=== PATIENT | male | born 1990 | race Hispanic/Latino ===

== ENCOUNTER 2019-10-27 01:56 | Emergency (ER) | payer OTHER ==
--- OUTSIDE RECORDS SUMMARY | 2019-10-27 01:57 | XMS REPORT | Continuity of Care Document ---
:1990 Author Organization [facility] t Address [address] [place] [address] Care Team Providers Name Role Phone TechAaliyah Cardio Fac Attending Clinician Unavailable Problems This patient has no known problems. Allergies, Adverse Reactions, Alerts This patient has no known allergies or adverse reactions. Medications This patient has no known medications. Procedures This patient has no known procedures. Encounters Start End Encounter Admission Attending Care Care Encounter Source Date/Time Date/Time Type Type Clinicians Facility Department ID 2019-01-18 2019-01-18 Animal Keeper Head, [facility] [id number] 10:58:24 11:50:19 Only Cardio Fac Glory [id number] Mathew [id number] Calvin [id number] nal 059 Building Results This patient has no known results.
[2019-10-27 03:26] LABS: Absolute Lymphocytes (CBC) 2.9 K/uL (0.7-4.9); Basophils % 0.9 % (0-1.3); Hematocrit 48.6 % (39.6-49.0); Lymphocytes % 40.8 % (15.3-44.8); MPV 8.6 fL (7.6-11.3); RBC Red Blood Cell Count 5.32 M/uL (4.33-5.43)
[2019-10-27 03:29] LABS: Protime INR 0.98
[2019-10-27 03:39] LABS: ALT/SGPT 99 U/L (12-78); AST/SGOT 39 U/L (15-37); Albumin 4.1 g/dL (3.4-5.0); Alkaline Phosphatase 74 U/L (45-117); BUN Blood Urea Nitrogen 13 mg/dL (7-18); Bicarbonate 24 mmol/L (21-32); Bilirubin Direct 0.1 mg/dL (0-0.2); Bilirubin Total 0.4 mg/dL (0.2-1.0); CKMB Creatine Kinase MB < 1.0 ng/mL (0.3-3.6); Creatine Phosphokinase 57 U/L (39-308); Glucose Level 96 mg/dL (74-106); Lipase 104 U/L (73-393); Magnesium 2.1 mg/dL (1.8-2.4); NT PRO-BNP 7 pg/mL (<125); Protein, Total 8.2 g/dL (6.4-8.2); Sodium Level 139 mmol/L (136-145); Troponin (Emerg Dept Use Only) < 0.02 ng/mL (0.0-0.045)
--- NOTE | 2019-10-27 04:26 | EDPHYS ---
Physician Documentation [facility] Name: Diaz Schroeder Age: 29 yrs Sex: Male : 1990 Arrival Date: 10/27/2019 Time: 01:57 Bed 13 Private MD: ED Physician Luigi Murphy HPI: 10/26 03:36 This 29 yrs old Male presents to ER via Ambulatory with complaints of Panic mh7 Attack. 03:36 The patient has shortness of breath at rest, during emotionally upset. Onset: The mh7 symptoms/episode began/occurred yesterday. Duration: The symptoms are intermittent, with no pattern. The patient's shortness of breath is aggravated by nothing, is alleviated by nothing. 03:37 Associated signs and symptoms: Pertinent positives: productive cough, Pertinent mh7 negatives: chest pain, diaphoresis, dizziness, fever, hemoptysis, loss of consciousness, nausea, numbness in extremities, visual changes, vomiting. Severity of symptoms: At their worst the symptoms were moderate yesterday, in the emergency department the symptoms have improved moderately. The patient has experienced similar episodes in the past, several times. Historical: - Allergies: 02:13 No Known Allergies; rr5 - Home Meds: 02:13 BP medication " little pink pill" [Active]; anxiety medication daily [Active]; rr5 - PMHx: 02:13 Hypertension; Anxiety; rr5 - PSHx: 02:13 None; rr5 - Immunization history:: Adult Immunizations up to date. - Social history:: Smoking status: Patient denies any tobacco usage or history of. ROS: 03:37 Constitutional: Negative for fever, chills, and weight loss, Eyes: Negative for injury, mh7 pain, redness, and discharge, ENT: Negative for injury, pain, and discharge, Neck: Negative for injury, pain, and swelling, Cardiovascular: Negative for chest pain, palpitations, and edema, Abdomen/GI: Negative for abdominal pain, nausea, vomiting, diarrhea, and constipation, Back: Negative for injury and pain, : Negative for injury, bleeding, discharge, and swelling, MS/Extremity: Negative for injury and deformity, Skin: Negative for injury, rash, and discoloration, Neuro: Negative for headache, weakness, numbness, tingling, and seizure, Psych: Negative for depression, anxiety, suicide ideation, homicidal ideation, and hallucinations, Allergy/Immunology: Negative for hives, rash, and allergies, Endocrine: Negative for neck swelling, polydipsia, polyuria, polyphagia, and marked weight changes, Hematologic/Lymphatic: Negative for swollen nodes, abnormal bleeding, and unusual bruising. Exam: 03:37 Constitutional: This is a well developed, well nourished patient who is awake, alert, mh7 and in no acute distress. Head/Face: Normocephalic, atraumatic. Eyes: Pupils equal round and reactive to light, extra-ocular motions intact. Lids and lashes normal. Conjunctiva and sclera are non-icteric and not injected. Cornea within normal limits. Periorbital areas with no swelling, redness, or edema. Neck: Trachea midline, no thyromegaly or masses palpated, and no cervical lymphadenopathy. Supple, full range of motion without nuchal rigidity, or vertebral point tenderness. No Meningismus. Chest/axilla: Normal chest wall appearance and motion. Nontender with no deformity. No lesions are appreciated. Cardiovascular: Regular rate and rhythm with a normal S1 and S2. No gallops, murmurs, or rubs. Normal PMI, no JVD. No pulse deficits. Respiratory: Lungs have equal breath sounds bilaterally, clear to auscultation and percussion. No rales, rhonchi or wheezes noted. No increased work of breathing, no retractions or nasal flaring. Abdomen/GI: Soft, non-tender, with normal bowel sounds. No distension or tympany. No guarding or rebound. No evidence of tenderness throughout. Back: No spinal tenderness. No costovertebral tenderness. Full range of motion. Skin: Warm, dry with normal turgor. Normal color with no rashes, no lesions, and no evidence of cellulitis. MS/ Extremity: Pulses equal, no cyanosis. Neurovascular intact. Full, normal range of motion. Neuro: Awake and alert, GCS 15, oriented to person, place, time, and situation. Cranial nerves II-XII grossly intact. Motor strength 5/5 in all extremities. Sensory grossly intact. Cerebellar exam normal. Normal gait. Psych: Awake, alert, with orientation to person, place and time. Behavior, mood, and affect are within normal limits. Vital Signs: 02:13 BP 156 / 96; Pulse 78; Resp 20; Temp 97.2; Pulse Ox 100% on R/A; sg 03:10 BP 139 / 94; Pulse 69; Resp 18; Pulse Ox 98% on R/A; ao 04:14 BP 141 / 97; Pulse 69; Resp 16; Pulse Ox 99% ; Pain 0/10; ao MDM: 02:45 Patient medically screened. [facility] 04:21 Differential diagnosis: Anemia Anxiety Reaction asthma, Bronchitis Myocardial 7 Infarction pneumonia, Psychogenic pulmonary edema, Pulmonary Embolism reactive airway disease. Data reviewed: vital signs, nurses notes, lab test result(s), cardiac enzymes, CBC, electrolytes, EKG, radiologic studies, plain films. Data interpreted: groundwater monitoring technician: rate is 69 beats/min, rhythm is normal sinus rhythm, regular, Interpretation: normal rate, normal rhythm, Pulse oximetry: on room air is 99 %. Interpretation: normal. Counseling: I had a detailed discussion with the patient and/or guardian regarding: the historical points, exam findings, and any diagnostic results supporting the discharge/admit diagnosis, the presence of at least one elevated blood pressure reading (>120/80) during this emergency department visit, lab results, radiology results, the need for outpatient follow up, to return to the emergency department if symptoms worsen or persist or if there are any questions or concerns that arise at home. Response to treatment: the patient's symptoms have resolved after treatment, the patient's blood pressure is in an acceptable range, mental status has returned to baseline, the patient no longer shows bradycardia, the patient is not short of breath, the patient is not tachycardic, the patient's pain is gone, the patient's temperature has normalized. 10/26 02:46 Order name: Blood Culture Adult (2) 10/26 02:46 Order name: BMP; Complete Time: 04:16 10/26 02:46 Order name: CBC with Diff; Complete Time: 04:16 10/26 02:46 Order name: Ckmb; Complete Time: 04:16 10/26 02:46 Order name: CPK; Complete Time: 04:16 10/26 02:46 Order name: D-Dimer; Complete Time: 04:16 10/26 02:46 Order name: Hepatic Function; Complete Time: 04:16 10/26 02:46 Order name: Lipase; Complete Time: 04:16 [facility] 10/26 02:46 Order name: Magnesium; Complete Time: 04:16 10/26 02:46 Order name: NT PRO-BNP; Complete Time: 04:16 10/26 02:46 Order name: PT-INR; Complete Time: 04:16 [facility] 10/26 02:46 Order name: Ptt, Activated; Complete Time: 04:16 [facility] 10/26 02:46 Order name: Troponin (emerg Dept Use Only); Complete Time: 04:16 [facility] 10/26 02:46 Order name: EKG; Complete Time: 02:48 [facility] 10/26 02:46 Order name: Cardiac monitoring; Complete Time: 04:07 [facility] 10/26 02:48 Order name: Chest Pa And Lat (2 Views) XRAY [facility] 10/26 02:48 Order name: EKG Electrocardiogram [facility] 10/26 02:46 Order name: EKG - Nurse/Tech; Complete Time: 04:07 [facility] 10/26 02:46 Order name: IV Saline Lock; Complete Time: 04:07 [facility] 10/26 02:46 Order name: Labs collected and sent; Complete Time: 04:07 [facility] 10/26 02:46 Order name: O2 Per Protocol; Complete Time: 04:07 [facility] 10/26 02:46 Order name: O2 Sat Monitoring; Complete Time: 04:07 [facility] Administered Medications: No medications were administered Disposition: 10/27/19 04:25 Discharged to Home. Impression: Dyspnea, Anxiety. - Condition is Stable. - Discharge Instructions: Shortness of Breath, [id number], Generalized Anxiety Disorder. - Medication Reconciliation Form, Thank You Letter, Antibiotic Education, Prescription Opioid Use form. - Follow up: Private Physician; When: 1 - 2 days; Reason: Worsening of condition, Recheck today's complaints, Re-evaluation by your physician. - Problem is an acute exacerbation. - Symptoms have improved. Signatures: Dispatcher [employer] EDMS Anthony Choi RN Carlos Lora RN RN rr5 Luigi Murphy MD MD 7 Corrections: (The following items were deleted from the chart) 02:49 02:48 Basic Metabolic Panel ordered. [facility] 02:49 02:48 CBC with Automated Diff ordered. [facility] 02:49 02:48 CKMB Creatine Kinase MB ordered. [facility] 02:49 02:48 Creatine Phosphokinase ordered. [facility] 02:49 02:48 D-Dimer ordered. [facility] 02:49 02:48 Liver (Hepatic) Function ordered. [facility] 02:49 02:48 Lipase ordered. [facility] 02:49 02:48 Magnesium ordered. [facility] 02:49 02:48 NT PRO-BNP ordered. [facility] 02:49 02:48 Protime (+INR) ordered. [facility] 02:49 02:48 PTT, Activated Partial Thromb ordered. [facility] 02:49 02:48 Troponin (Emerg Dept Use Only) ordered. [facility] 04:09 02:48 Blood Culture ordered. [facility] 04:50 04:25 10/27/2019 04:25 Discharged to Home. Impression: Dyspnea; Anxiety. Condition is ao Stable. Forms are Medication Reconciliation Form, Thank You Letter, Antibiotic Education, Prescription Opioid Use. Follow up: Private Physician; When: 1 - 2 days; Reason: Worsening of condition, Recheck today's complaints, Re-evaluation by your physician. Problem is an acute exacerbation. Symptoms have improved. mh7
--- NOTE | 2019-10-27 04:26 | ER ---
Nurse's Notes [facility] Name: Diaz Schroeder Age: 29 yrs Sex: Male : 1990 Arrival Date: 10/27/2019 Time: 01:57 Bed 13 Private MD: Diagnosis: Dyspnea;Anxiety Presentation: 10/26 02:09 Chief complaint: Patient states: feeling short of breath this morning, reports waking rr5 up from sleep feeling anxious and short of breath, states has had a COVID 19 test performed with negative results, states his partner whom he shares a house with tested positive, denies N/V/D at this time. Coronavirus screen: Proceed with normal triage. Ebola Screen: Patient negative for fever greater than or equal to 101.5 degrees Fahrenheit, and additional compatible Ebola Virus Disease symptoms Patient denies exposure to infectious person. Patient denies travel to an Ebola-affected area in the 21 days before illness onset. No symptoms or risks identified at this time. Initial Sepsis Screen: Does the patient meet any 2 criteria? No. Patient's initial sepsis screen is negative. Does the patient have a suspected source of infection? No. Patient's initial sepsis screen is negative. Risk Assessment: Do you want to hurt yourself or someone else? Patient reports no desire to harm self or others. Onset of symptoms was October 27, 2019. Care prior to arrival: None. Transition of care: patient was not received from another setting of care. 02:09 Method Of Arrival: Ambulatory rr5 02:09 Acuity: MALOU 4 rr5 Historical: - Allergies: 02:13 No Known Allergies; rr5 - Home Meds: 02:13 BP medication " little pink pill" [Active]; anxiety medication daily [Active]; rr5 - PMHx: 02:13 Hypertension; Anxiety; rr5 - PSHx: 02:13 None; rr5 - Immunization history:: Adult Immunizations up to date. - Social history:: Smoking status: Patient denies any tobacco usage or history of. Screenin:20 Abuse screen: Denies threats or abuse. Denies injuries from another. Nutritional ao screening: No deficits noted. Tuberculosis screening: No symptoms or risk factors identified. Fall Risk None identified. Assessment: 02:15 General: Appears in no apparent distress. comfortable, obese, well groomed, well ao developed, well nourished, Behavior is calm, cooperative, appropriate for age. Pain: Denies pain. Neuro: Level of Consciousness is awake, alert, obeys commands, Oriented to person, place, time, situation, Appropriate for age Moves all extremities. Full function Speech is normal. Neuro: Reports anxiety attack. Cardiovascular: Capillary refill < 3 seconds Patient's skin is warm and dry. Respiratory: Airway is patent Respiratory effort is even, unlabored, Respiratory pattern is regular, symmetrical. GI: Abdomen is obese. : No signs and/or symptoms were reported regarding the genitourinary system. EENT: No signs and/or symptoms were reported regarding the EENT system. Derm: Skin is intact, Skin is pink, warm \\T\\ dry. normal, Skin temperature is warm. Musculoskeletal: Circulation, motion, and sensation intact. Range of motion: intact in all extremities. 03:10 Reassessment: Patient appears in no apparent distress at this time. Patient and/or ao family updated on plan of care and expected duration. Pain level reassessed. Patient in no distress. 04:14 Reassessment: Patient appears in no apparent distress at this time. Patient and/or ao family updated on plan of care and expected duration. Pain level reassessed. Waiting on Labs. 04:49 Reassessment: Patient appears in no apparent distress at this time. Patient discharge ao home ambulatory. Pt agree with the POC and to follow with PCP. Pt had no questions. Vital Signs: 02:13 BP 156 / 96; Pulse 78; Resp 20; Temp 97.2; Pulse Ox 100% on R/A; sg 03:10 BP 139 / 94; Pulse 69; Resp 18; Pulse Ox 98% on R/A; ao 04:14 BP 141 / 97; Pulse 69; Resp 16; Pulse Ox 99% ; Pain 0/10; ao ED Course: 01:57 Patient arrived in ED. ds1 02:00 Patient has correct armband on for positive identification. shelter monitor on. Pulse ao ox on. NIBP on. 02:09 Arm band placed on. rr5 02:12 Triage completed. rr5 02:24 Luigi Murphy MD is Attending Physician. mh7 03:10 Inserted saline lock: 20 gauge in right antecubital area, using aseptic technique. ao Blood collected. 03:26 Choi, Anthony, RN is Primary Nurse. ao 03:28 Chest Pa And Lat (2 Views) XRAY In Process Unspecified. EDMS 04:48 No provider procedures requiring assistance completed. IV discontinued, intact, ao bleeding controlled, No redness/swelling at site. Pressure dressing applied. Administered Medications: No medications were administered Outcome: 04:25 Discharge ordered by MD. holliday 04:48 Discharged to home ambulatory. ao 04:48 Condition: stable 04:48 Discharge instructions given to patient, Instructed on discharge instructions, follow up and referral plans. Demonstrated understanding of instructions, follow-up care, medications. 04:50 Patient left the ED. ao Signatures: Dispatcher [employer] EDMS Daren Medeiros RN RN Jordyn Leo ds1 Anthony Choi RN RN Carlos Gonzalez RN RN rr5 Luigi Murphy MD MD [facility]
[2019-10-27 05:20] VITALS: TEMP 97.2
[2019-10-27 05:23] VITALS: BP 141/97; O2SAT 99
--- NOTE | 2019-10-27 11:08 | RAD REPORT ---
EXAM DESCRIPTION: RAD - Chest Pa And Lat (2 Views) - 10/27/2019 3:28 am CLINICAL HISTORY: SOB Chest pain. COMPARISON: No comparisons FINDINGS: The lungs are clear. The heart is normal in size. No displaced fractures. IMPRESSION: No acute or concerning finding suspected.
--- NOTE | 2019-10-27 11:24 | EKG ---
Test Date: 2019-10-27 Test Time: 03:47:37 Shade Bander: MEASUREMENT RESULTS: Intervals: Rate: 73 CT: 128 QRSD: 106 QT: 360 QTc: 396 Hulen: P: 9 CT: 128 QRS: -15 T: 39 INTERPRETIVE STATEMENTS: Normal sinus rhythm Incomplete right bundle branch block Borderline ECG No previous ECG available for comparison Electronically Signed On 10-27-19 11:23:09 CDT by Dipak Encarnacion
== END 2019-10-27 04:50 | disposition home or self-care (01) ==
LOC: ER 01:56
DX: F41.9 Anxiety disorder, unspecified (principal); I10 Essential (primary) hypertension
CPT/HCPCS: 36415; 71046; 80048; 80076; 82550; 82553; 83690; 83735; 83880; 84484; 85025; 85379; 85610; 85730; 87040; 93005; 99284